=== PATIENT | male | born 1945 | race Caucasian/White ===

== ENCOUNTER 2023-08-16 14:33 | Emergency (ER) | payer MEDICARE, OTHER, SELFPAY ==
--- NOTE | 2023-08-16 14:38 | ED_ITS ---
HPI - General Adult General Chief complaint: Epistaxis Stated complaint: nosebleed Time Seen by Provider: 08/16/23 14:52 Source: patient and family Mode of arrival: ambulatory Limitations: no limitations History of Present Illness HPI narrative: 78-year-old male presents the ER for evaluation of acute onset of nosebleed that started 20 minutes ago after blowing his nose. Patient reports blood started pouring out of his nose and was unable to be controlled. He states there was significant amount of blood in his kitchen sink. He applied pressure with a face cloth and came to the emergency department. He has never had a noseleed before. he is not on any anticoagulation or antiplatelet drugs. He denies any headache, vision changes. he has not sure which nare the bleeding is coming from. actively bleeding in triage and brought back to treatment room MD complaint: nosebleed Onset (ago): minute(s) Location: face Radiation: non-radiation Severity: severe Pain Consistency: constant Relieving factors: none Exacerbating factors: none Associated symptoms: denies other symptoms Related Data Allergies Allergy/AdvReac Type Severity Reaction Status Date / Time bee pollen [BEE STINGS] Allergy Unknown ANAPHYLAXIS Verified 08/16/23 14:45 Review of Systems Review of Systems: Yes all other systems are reviewed and are negative [facility] Social History Social History Unable to assess alcohol history related to: Unknown Alcohol intake: current Alcohol intake frequency: 3 or more drinks per day Smoked in Last 30 Days: No Use of substances other than those prescribed or required for medical reasons: No Advance Directives: Yes Advance Directives Information Provided: No Advance Directives on File: No Physical Exam ED Vital Signs: Vital Signs - 24 hr 08/16/23 14:41 08/16/23 16:12 Temperature 98 F 98.2 F Pulse Rate 102 H 94 Respiratory Rate 16 20 Blood Pressure 172/100 H 136/86 Pulse Oximetry 97 97 Oxygen Delivery Method Room Air Room Air BMI result Body Mass Index 27.9 Appearance: Alert. Oriented X3. No acute distress. Head: normocephalic, atraumatic. Eyes: Pupils equal, round and reactive to light. ENT: nose with dried blood bilaterally, large blood clot in the left nare was removed, approximately 3 cm in length. nasal septum on the right side with some punctate erythematous lesions without any active oozing, nasal septum on the left side with visibly bleeding arterial source. Pharynx normal. moist mucus membranes, no blood in the posterior oropharynxNo tonsillar swelling or exudate. Neck: Normal inspection. Neck supple. CVS: Normal heart rate and rhythm. Respiratory: No respiratory distress. Skin: Skin warm and dry. Normal skin color. Normal skin turgor. No rashes. Extremities: No lower extremity edema. No joint swelling. Neuro/psych: Oriented X 3. grossly normal, nonfocal, normal speech and cognition Course Course Course Narrative: RME:?78 yo male here for eval of epistaxis that began around 1400 today after blowing his nose. no thinners. states his left nostril has not stopped bleeding since. denies trauma/injury to the nose. states this has never happened before. cannot visualize bleed in triage Full HPI, ROS and PE to be performed by the primary ED provider. Medications Administered Discontinued Medications Generic Name Dose Route Start Last Admin Trade Name Freq PRN Reason Stop Dose Admin Cocaine HCl 4 ml 08/16/23 15:09 08/16/23 15:16 Cocaine Hcl 4 % 4 Ml Solution TOPICAL 08/16/23 15:10 4 ml ONCE ONE Administration Protocol Oxymetazoline HCl 2 spray 08/16/23 14:57 08/16/23 15:24 Oxymetazoline Hcl 0.05 % Nasal 15 Ml [place] NOSTRIL-B 08/16/23 14:58 2 spray ONCE ONE Administration Tranexamic Acid 500 mg 08/16/23 14:58 08/16/23 15:23 Tranexamic Acid 1,000 Mg/10 Ml Vial INTRANASAL 08/16/23 14:59 500 mg ONCE ONE Administration Procedures Epistaxis Control Time Out Performed: No Nostril: Yes left Nose prepped with: Yes cocaine 4%, Yes lidocaine and Yes oxymetazoline Direct inspection: Yes anterior source identified Direct inspection method: Yes nasal speculum and Yes headlamp Clots removed by: Yes blowing nose Epistaxis treatment: Yes TXA soaked gauze and Yes silver nitrate cautery Results of treatment: Yes bleeding controlled and Yes treatment well tolerated Complications: Yes none Medical Decision Making Medical Decision Making MDM Narrative: 78-year-old male presents the ER for evaluation of an acute onset of epistaxis. patient acutely hypertensive on arrival with blood pressure systolic in the 170s. No history of hypertension. Exam revealing active bleeding from the left nare. Afrin, TXA soaked gauze were applied to the nose and clamped for 10 minutes. Patient continued to have active bleeding around the TXA soaked gauze. Dr. Gillette came to the bedside to evaluate the patient. topical cocaine was applied with brief hemostasis. patient started actively bleeding after this and the area of bleeding was able to be visualized using nasal speculum. The area was cauterized with silver nitrate sticks effectively. Patient was observed for another 15 minutes in the emergency department and had no recurrence of bleeding. He was counseled on preventative measures and management at home. He was also given return precautions. He is stable for discharge home Differential Diagnosis Differential Diagnoses: The differential diagnosis associated with the presentation includes anterior nosebleed, posterior nosebleed, facial trauma Independent Historian Clinical information obtained from an independent historian. History obtained from or confirmed by: Spouse External Record Review External record reviewed: Prior outpatient labs Tests considered The following testing was considered but not selected: considered evaluation of coagulopathy and platelets however bleeding was able to be controlled Critical Care Time Critical Care Time Critical Care Time: Yes Total Critical Care Time: 38 Attestation: I have personally provided critical care time exclusive of time spent on separately billable procedures. Time includes review of lab data, radiology res ults, discussion with consultants, and monitoring for potential decompensation. Intervention performed as documented. Discharge Plan Discharge Clinical Impression: Epistaxis Patient Disposition: Home, Self-Care Instructions: Nosebleed (ED) Additional Instructions: Do not blow your nose If bleeding recurs use the Afrin spray and clamp for 15 minutes Avoid hot beverages for the next 2-3 days, it can increase re-bleeding If you develop new or worsening symptoms call 911 or come back to the ER for further evaluation. Interventions: ED Discharge Assessment Last Done: 08/16/23 16:12 Discharge Date/Time: 08/16/23 16:14 Print Language: Sami
[2023-08-16 14:41] VITALS: BP 172/100; PULSE 102; RESP 16; TEMP 36.6; O2SAT 97; BMI 27.9
[2023-08-16] MEDS: Cocaine HCl 4 % 4 ML SOLUTION TOPICAL (15:16)
[2023-08-16] MEDS: Tranexamic Acid 1,000 MG/10 ML VIAL 500 MG INTRANASAL (15:23)
[2023-08-16] MEDS: Oxymetazoline HCl 0.05 % Nasal 15 ML SPRAY 2 SPRAY NOSTRIL-B (15:24)
[2023-08-16 16:12] VITALS: BP 136/86; PULSE 94; RESP 20; TEMP 36.8; O2SAT 97
== END 2023-08-16 16:14 | disposition home or self-care (01) ==
PROVIDERS: Emergency Provider Emergency Medicine; PCP Internal Medicine
DX: R04.0 Epistaxis (principal)
CPT/HCPCS: 99283; C9143

== ENCOUNTER 2023-08-31 22:15 | Emergency (ER) | payer MEDICARE, OTHER, SELFPAY ==
[2023-08-31 22:45] VITALS: BP 160/74; PULSE 70; RESP 18; TEMP 37; O2SAT 98; BMI 27.9
[2023-08-31 23:04] LABS: Basophils Percent Auto 0.2 % (0-2); Eosinophils Percent Auto 0.6 % (0-4); Hematocrit 40.4 % (42.0-52.0); Hemoglobin 13.9 g/dl (14.0-18.0); Imm Gran Abs Auto 0.01 X10*3/uL (0.00-0.03); Imm Gran Pct Auto 0.2 % (0.0-0.4); Lymphocytes Absolute Auto 2.2 X10*3/uL (1.2-4.9); Lymphocytes Percent Auto 41.6 % (20-40); MANUAL DIFF FLAG SCAN; Mean Corpuscular HGB Conc 34.4 g/dl (31.0-36.0); Mean Corpuscular Hemoglobin 30.9 pg (27.0-33.0); Mean Corpuscular Volume 89.8 fL (80.0-98.0); Mean Platelet Volume 10.6 fL (9.4-12.4); Monocytes Absolute Auto 0.7 X10*3/uL (0.1-1.2); Neutrophils Absolute Auto 2.3 x10*3/uL (2.0-8.3); Neutrophils Percent Auto 44.4 % (45-73); Platelet Count 152 X10*3/uL (160-400); Red Cell Distribution Width 12.6 % (11.0-16.0); SCAN SMEAR FLAG 1; White Blood Count 5.2 X10*3/uL (4.8-10.8)
[2023-08-31 23:19] LABS: Alanine Aminotransferase 29 U/L (0-40); Albumin Level 4.3 g/dL (3.5-5.0); Alkaline Phosphatase 79 U/L (39-117); Anion Gap 11 (12-20); Aspartate Amino Transferase 30 U/L (5-37); Bilirubin Total 0.4 mg/dL (0.0-1.0); Blood Urea Nitrogen 21 mg/dL (9-16); Calcium 9.4 mg/dL (8.4-10.2); Carbon Dioxide 27 mmol/L (22-29); Chloride 106 mmol/L (96-108); Creatinine Clr Calc Pharmacy 85.2; Estimated Glomerular Filt Rate > 60; Glucose Random 154 mg/dL (60-115); Potassium 4.9 mmol/L (3.3-5.1); Sodium 139 mmol/L (135-145)
[2023-08-31 23:28] LABS: SLIDE REVIEW VERIFIED
--- NOTE | 2023-09-01 01:26 | ED.EPISTAXIS ---
History of Present Illness General Chief Complaint: Epistaxis Stated Complaint: Epistaxis Time Seen by Provider: 09/01/23 01:15 Source: patient Mode of arrival: ambulatory Limitations: no limitations History of Present Illness HPI Narrative: Patient comes to the emergency room complaining of epistaxis. Patient states that he blew his nose very hard and started bleeding. Patient not on blood thinners. Patient states that at the beginning of this month patient had a similar episode of epistaxis. At this time, patient states that the bleeding is slowing known. Still present. No chest pain or shortness of breath, no lightheadedness. Related Data Previous Rx's ?Medication ?Instructions ?Recorded fexofenadine 60 mg-pseudoephedrine 1 tab PO Q12H PRN nasal congestion 09/01/23 ER 120 mg tablet,ext.release,12 hr #10 tabs (Isabela-D 12 Hour) Allergies Allergy/AdvReac Type Severity Reaction Status Date / Time bee pollen [BEE STINGS] Allergy Unknown ANAPHYLAXIS Verified 08/31/23 22:47 Review of Systems Review of Systems: Constitutional : No Weight loss, No Fever, No Chills, No Night Sweats, No Fatigue, No Malaise ENT/Mouth : Complaining of epistaxis, No Hearing loss, No Ear Pain, No Nasal Congestion, No Sinus Pain, No Hoarseness, No sore throat, No Rhinorrhea, No Swallowing Difficulty Eyes: No Eye Pain, No Swelling, No Redness, No Foreign Body, No Discharge, No Vision Changes Cardiovascular : No Chest Pain, No SOB, No Dyspnea on Exertion, No Orthopnea, No Edema, No Palpitations Respiratory : No Cough, No Sputum, No Wheezing, No Smoke Exposure, No Dyspnea Gastrointestinal : No Nausea, No Vomiting, No Diarrhea, No Constipation, No abdominal Pain, No Hematochezia, No Melena Genitourinary : no irregular bleeding, No Dysuria, No Urinary Frequency, No Hematuria, No Urinary Incontinence, No Urgency, No Flank Pain, No Urinary Flow Changes, No Hesitancy Musculoskeletal : No joint pain, No Myalgias, No Joint Swelling Skin : No Skin Lesions, No rash Neuro : No Weakness, No Numbness, No Paresthesias, No Loss of Consciousness, No Dizziness, No Headache Psych : No Anxiety/Panic, No Depression, No SI/HI/AH/VH, No Social Issues, Heme/Lymph: No Bruising, No Bleeding,No Lymphadenopathy Endocrine : No Polyuria, No Polydipsia, No Temperature Intolerance [facility] Social History Social History Unable to assess alcohol history related to: Unknown Alcohol intake: current Alcohol intake frequency: 3 or more drinks per day Advance Directives: No Advance Directives Information Provided: No Physical Exam Vital Signs: Vital Signs: Last Vital Signs Temp 98.6 F 08/31/23 22:45 Pulse 70 08/31/23 22:45 Resp 18 08/31/23 22:45 BP 160/74 H 08/31/23 22:45 Pulse Ox 98 08/31/23 22:45 O2 Del Method Room Air 08/31/23 22:45 BMI result Body Mass Index 27.9 Const: Other: Appearance: Alert. Oriented X3. No acute distress. Eyes: Pupils equal, round and reactive to light. ENT: Pharynx normal. Bilateral epistaxis present Neck: Normal inspection. Neck supple. No lymph nodes noted. No crepitus CVS: Normal heart rate and rhythm. Pulses normal. Normal S1 and S2 Respiratory: No respiratory distress. Breath sounds normal. No Wheezing. No rales Abdomen: Soft and nontender. No rigidity. No distention. Skin: Skin warm and dry. Normal skin color. Normal skin turgor. Extremities: No lower extremity edema. No Lacerations. No Rash Neuro: Oriented X 3. No motor deficit. No sensory deficit. Moving all extremities. No slurred speech. CN 2 through 12 grossly intact Psych: calm, cooperative, normal affect Course Course Course Narrative: -patient has history of epistaxis resistant to treatment. We will go ahead and start with TXA topical. Medical Decision Making Medical Decision Making [facility] Narrative: Tranexamic acid was pain to patient's nostrils, the bleeding has stopped. Patient requesting p.o. medications for nasal congestion. Since patient has a URI. Lab Data 08/31/23 22:57 08/31/23 22:57 Labs: Lab Results 08/31/23 Range/Units 22:57 WBC 5.2 (4.8-10.8) X10*3/uL RBC 4.50 L (4.60-5.80) X10*6/uL Hgb 13.9 L (14.0-18.0) g/dl Hct 40.4 L (42.0-52.0) % MCV 89.8 (80.0-98.0) fL MCH 30.9 (27.0-33.0) pg MCHC 34.4 (31.0-36.0) g/dl RDW 12.6 (11.0-16.0) % Plt Count 152 L (160-400) X10*3/uL MPV 10.6 (9.4-12.4) fL Immature Gran % (Auto) 0.2 (0.0-0.4) % Neut % (Auto) 44.4 L (45-73) % Lymph % (Auto) 41.6 H (20-40) % Pender % (Auto) 13.0 H (2-11) % Eos % (Auto) 0.6 (0-4) % Baso % (Auto) 0.2 (0-2) % Lymph # (Auto) 2.2 (1.2-4.9) X10*3/uL Pender # (Auto) 0.7 (0.1-1.2) X10*3/uL Eos # (Auto) 0.0 (0.0-0.4) X10*3/uL Baso # (Auto) 0.0 (0.0-0.2) X10*3/uL Abs Immat Gran (auto) 0.01 (0.00-0.03) X10*3/uL Absolute Neuts (auto) 2.3 (2.0-8.3) x10*3/uL Absolute Nucleated RBC 0.000 (0.0-0.012) X10*3/uL Nucleated RBC % (auto) 0.0 (0.0-0.2) /100WBC Smear Tech's Comments VERIFIED Sodium 139 (135-145) mmol/L Potassium 4.9 (3.3-5.1) mmol/L Chloride 106 (96-108) mmol/L Carbon Dioxide 27 (22-29) mmol/L Anion Gap 11 L (12-20) BUN 21 H (9-16) mg/dL Creatinine 0.81 (0.5-1.4) mg/dL Estim Creat Clear Calc 85.2 Estimated GFR > 60 Random Glucose 154 H (60-115) mg/dL Calcium 9.4 (8.4-10.2) mg/dL Total Bilirubin 0.4 (0.0-1.0) mg/dL AST 30 (5-37) U/L ALT 29 (0-40) U/L Alkaline Phosphatase 79 (39-117) U/L Total Protein 8.0 (6.5-8.0) g/dL Albumin 4.3 (3.5-5.0) g/dL Critical Care Time Critical Care Time Critical Care Time: Yes Total Critical Care Time: 35 Attestation: I have personally provided critical care time. Time includes review of lab data, radiology results, discussion with consultants, and monitoring for potential decompensation. Intervention performed as documented. Discharge Plan Discharge Clinical Impression: Epistaxis Patient Disposition: Home, Self-Care Instructions: Nosebleed (ED) Additional Instructions: Please follow-up with your primary care physician tomorrow. If you have any worsening or new symptoms, please return to the emergency room or call 911 Prescriptions: New fexofenadine-pseudoephedrine [Isabela-D 12 Hour] 60-120 mg tablet extended release 12 hr 1 tab PO Q12H PRN (Reason: nasal congestion) Qty: 10 0RF Print Language: Cuban
[2023-09-01 03:39] VITALS: BP 132/76; PULSE 73; RESP 18; TEMP 36.8; O2SAT 97
== END 2023-09-01 02:20 | disposition home or self-care (01) ==
PROVIDERS: Emergency Provider Emergency Medicine; PCP Internal Medicine
DX: R04.0 Epistaxis (principal)
CPT/HCPCS: 36415; 80053; 85025; 99283

== ENCOUNTER 2024-02-01 13:21 | Outpatient (REF) | payer MEDICARE, OTHER, SELFPAY ==
[2024-02-01 13:30] LABS: Appearance Urine Clear; Color Urine Yellow; Glucose Urine UA Negative (Negative); Leukocyte Esterase Urine Trace (Negative); Nitrite Urine Negative (Negative); PH 6.5 (5.0-9.0); UMIC TRIGGER UACC YES; Urine Blood Negative (Negative); Urine Ketones Negative (Negative); Urine Protein Negative (Neg-Trace)
[2024-02-01 13:34] LABS: Bacteria Urine Trace (None Seen); Hyaline Casts Urine 0-2 /LPF (0-2); RBC Urine 0-2 /HPF (0-2); Squamous Epithelial Cell Urine 0-2 /HPF (0-2); UACC Culture Trigger YES
== END 2024-02-01 13:22 | disposition home or self-care (01) ==
LOC: HO.MANLNP 13:21
PROVIDERS: Visit Provider Internal Medicine
DX: Z13.89 Encounter for screening for other disorder (principal)
CPT/HCPCS: 81001; 87086; 87088; 87186

== ENCOUNTER 2024-02-19 11:31 | Outpatient (REF) | payer MEDICARE, OTHER, SELFPAY ==
[2024-02-19 13:12] LABS: Appearance Urine Clear; Color Urine Yellow; Glucose Urine UA Negative (Negative); Leukocyte Esterase Urine Negative (Negative); Nitrite Urine Negative (Negative); Urine Blood Negative (Negative); Urine Ketones Negative (Negative); Urine Protein Negative (Neg-Trace)
[2024-02-19 13:15] LABS: Bacteria Urine None Seen (None Seen); Hyaline Casts Urine 0-2 /LPF (0-2); RBC Urine 0-2 /HPF (0-2); Squamous Epithelial Cell Urine 0-2 /HPF (0-2); WBC Urine 0-5 /HPF (0-5)
== END 2024-02-19 11:32 | disposition home or self-care (01) ==
LOC: HO.MANLDS 11:31
PROVIDERS: Visit Provider Physician Assistant
DX: R30.0 Dysuria (principal)
CPT/HCPCS: 81001